=== PATIENT | female | born 1970 | race Caucasian/White ===

== ENCOUNTER 2024-04-14 07:51 | Day surgery (SDC) | payer OTHER ==
[~2024-04-14] VITALS: Ht 167.6 cm; Wt 63.5 kg
[~2024-04-14 07:51] MED LIST: ALBUTEROL108 MCG/AC PO; AMBIEN CR6.25 MG PO; AMBIEN5 MG PO; BACTRIM DS1 TAB PO; D 10001000 UNIT PO; EMLA CREAM5 GM/TUBE EX; ESTRACE2 M1 PO; FLEXERIL5 M1 PO; MEDDOSEPAK PO; MIRACLEMM PO; PROGESTERONE100 MG PO; ZPAK PO; [UNRECOGNIZED DRUG - OTHER] SC
[2024-04-14] MEDS ORDERED: LACTATED RINGER'S 1,000 ML IV ONE (07:59)
[2024-04-14 10:36] VITALS: BP 91/62
[2024-04-14] MEDS ORDERED: GLYCOPYRROLATE 0.2 MG/ML IV ONE (12:37)
[2024-04-14] MEDS ORDERED: PROPOFOL 200 MG/20 ML VIAL IV ONE (12:37)
[2024-04-14] MEDS ORDERED: PHENYLEPHRINE HCL 10 MG/ML VIAL IV ONE (12:37)
[2024-04-14] MEDS ORDERED: LIDOCAINE HCL 2% 2ML SDV IV ONE (12:37)
[2024-04-14] MEDS ORDERED: NITROFURANTN100 M2 PO (20:57)
== END 2024-04-14 10:17 | disposition home or self-care (01) | DRG 951 ==
LOC: ENDO 07:51
PROVIDERS: ATTEND Surgery
PROC: 0DJD8ZZ Inspection of Lower Intestinal Tract, Via Natural or Artificial Opening Endoscopic (ICD-10-PCS; principal; 2024-04-14)
PROC: 0DB48ZX Excision of Esophagogastric Junction, Via Natural or Artificial Opening Endoscopic, Diagnostic (ICD-10-PCS; 2024-04-14)
DX: Z12.11 Encounter for screening for malignant neoplasm of colon (principal); K21.9 Gastro-esophageal reflux disease without esophagitis; J45.909 Unspecified asthma, uncomplicated; Z87.19 Personal history of other diseases of the digestive system; Z88.0 Allergy status to penicillin
CPT/HCPCS: J1596